=== PATIENT | female | born 1955 | race Caucasian/White ===

== ENCOUNTER 2019-05-17 10:15 | Day surgery (SDC) | payer OTHER ==
[2019-05-17] MEDS ORDERED: PROPOFOL 20 ML ×2 (11:33→12:20)
[2019-05-17] MEDS ORDERED: DIPHENHYDRAMINE 50 MG INJ IV (12:30)
[2019-05-17] MEDS ORDERED: MIDAZOLAM 1 MG/ML 2 ML INJ IV (12:30)
[2019-05-17] MEDS ORDERED: LABETALOL HCL 20MG INJ IV (12:30)
[2019-05-17] MEDS ORDERED: METOCLOPRAMIDE 10 MG INJ IV (12:30)
[2019-05-17] MEDS ORDERED: FENTAnyl 50 MCG/ML VIAL IV ×3 (12:30)
[2019-05-17] MEDS ORDERED: EPHEDrine 25 MG/5 ML SYG IV (12:30)
[2019-05-17] MEDS ORDERED: OXYCODONE/ACETAMINOPHEN (5/325) TAB PO ×2 (12:30)
[2019-05-17] MEDS ORDERED: ONDANSETRON 4 MG INJ IV (12:30)
[2019-05-17] MEDS ORDERED: MEPERIDINE 25 MG INJ IV (12:30)
[2019-05-17] MEDS ORDERED: hydrALAzine 20 MG INJ IV (12:30)
== END 2019-05-17 13:19 | disposition home or self-care (01) ==
LOC: GIL 10:15
DX: Z86.010 Personal history of colon polyps (principal); K64.8 Other hemorrhoids; K57.30 Diverticulosis of large intestine without perforation or abscess without bleeding; D12.4 Benign neoplasm of descending colon
CPT/HCPCS: 45380; 88305